=== PATIENT | male | born 1950 | race Caucasian/White ===

== ENCOUNTER 2019-08-27 17:43 | Inpatient (IN) | payer MEDICARE, BC, OTHER ==
[~2019-08-27] VITALS: Ht 190.5 cm; Wt 146.7 kg
[2019-08-27 17:45] VITALS: BP 102/44
[2019-08-27] MEDS ORDERED: LISINOPRIL20 MG PO (17:52)
[2019-08-27] MEDS ORDERED: TRAMADOL 50 MG50 MG PO (17:53)
[2019-08-27 19:45] VITALS: BP 124/75
[2019-08-27 19:50] LABS: ABSOLUTE BASOPHILS 0.1 thou/uL (0.0-0.2); ABSOLUTE LYMPHOCYTES 1.2 thou/uL (0.8-5.3); ABSOLUTE MONOCYTES 0.4 thou/uL (0.0-1.2); ABSOLUTE NEUTROPHILS 6.8 thou/uL (1.6-8.1); BASOPHILS 0.7 %; EOSINOPHILS 0.2 %; HEMATOCRIT 35.3 % (42.0-52.0); HEMOGLOBIN 11.4 gm/dL (14.0-18.0); LYMPHOCYTES 13.8 %; MCH 23.4 pg (26.0-34.0); MCHC 32.4 g/dL (28.0-37.0); MCV 72.1 fL (80.0-100.0); MONOCYTES 5.1 %; MPV 6.6 fl. (7.2-11.1); NUCLEATED RBCS 0 /100WBC; PLATELET COUNT* 289 thou/uL (150-400); POLYS 80.2 %; RBC 4.89 mil/uL (4.50-6.00); RDW-CV 17.1 % (10.5-14.5); WBC 8.5 thou/uL (4.0-11.0)
[2019-08-27 20:00] LABS: CALCIUM 8.4 mg/dL (8.5-10.1); MAGNESIUM 1.8 mg/dL (1.8-2.4); POTASSIUM 3.3 mmol/L (3.5-5.1)
[2019-08-27 20:02] LABS: APTT 25.7 Seconds (25.0-31.3); PROTIME 10.7 Seconds (9.20-11.50)
[2019-08-27 20:26] VITALS: BP 129/66
[2019-08-27 21:36] VITALS: BP 114/69
[2019-08-28] MEDS ORDERED: IBUPROFEN200 MG PO (01:27)
[2019-08-28 08:32] VITALS: BP 123/76
[2019-08-28 10:07] LABS: MAGNESIUM 1.9 mg/dL (1.8-2.4); POTASSIUM 3.7 mmol/L (3.5-5.1)
[2019-08-28 15:53] VITALS: BP 124/77
[2019-08-28 19:50] VITALS: BP 117/83
[2019-08-29 08:00] VITALS: BP 123/72
[2019-08-29 20:25] VITALS: BP 122/79
[2019-08-30 08:00] VITALS: BP 110/74
[2019-08-30 15:20] VITALS: BP 95/60
[2019-08-30 20:50] VITALS: BP 101/66
[2019-08-31 08:00] VITALS: BP 108/65
[2019-08-31 16:37] VITALS: BP 108/69
[2019-08-31 22:00] VITALS: BP 97/66
[2019-09-01] VITALS: BP 102/64
[2019-09-01 02:20] VITALS: BP 112/70
[2019-09-01] MEDS ORDERED: HYDROCODON-ACE1 EAC7 PO (07:43)
[2019-09-01] MEDS ORDERED: COLACE 100 MG100 MG PO (07:43)
[2019-09-01] MEDS ORDERED: VITAMIN D21250 MC1 PO (07:43)
[2019-09-01] MEDS ORDERED: TRAMADOL 50 MG50 MG PO (07:50)
[2019-09-01 09:00] VITALS: BP 138/72
== END 2019-09-01 13:10 | DRG 543 ==
LOC: M.ERS 17:43 → M.ORTHSURG 18:52 → M.TBA-ER 18:52 → M.ORTHSURG 21:40
PROVIDERS: ADMIT Internal Medicine
PROC: 2W38X1Z Immobilization of Right Upper Extremity using Splint (ICD-10-PCS; principal; 2019-08-27)
DX: M80.021A Age-related osteoporosis with current pathological fracture, right humerus, initial encounter for fracture (principal); Z68.41 Body mass index [BMI] 40.0-44.9, adult; G47.30 Sleep apnea, unspecified; E66.01 Morbid (severe) obesity due to excess calories; G43.909 Migraine, unspecified, not intractable, without status migrainosus; I10 Essential (primary) hypertension; G56.10 Other lesions of median nerve, unspecified upper limb; Z60.2 Problems related to living alone; Z96.641 Presence of right artificial hip joint; Z96.651 Presence of right artificial knee joint; Z79.899 Other long term (current) drug therapy; Z72.89 Other problems related to lifestyle; Z88.8 Allergy status to other drugs, medicaments and biological substances; Z91.048 Other nonmedicinal substance allergy status; Z23 Encounter for immunization